=== PATIENT | male | born 1965 | race Native Hawaiian/Other Pacific Islander ===

== ENCOUNTER 2018-03-16 07:41 | Emergency (ER) | payer MEDICARE ==
[2018-03-16 08:13] VITALS: TEMP 98.8; O2SAT 97
[2018-03-16] MEDS ORDERED: Oxycodone/Acetaminophen 5/325 mg Tab PO STA (08:18)
[2018-03-16] MEDS ORDERED: Oxycodone/Acetaminophen 5/325 mg Tab ONE (08:41)
--- NOTE | 2018-03-16 08:59 | C.PDOC ---
History Of Present Illness 52 years old male with with PMHx of gout brought to ED by ambulance for complaints of constant left knee pain associated with some swelling that began 2 days ago. Patient reports its painful to walk and bend knee. Denies injuries, trauma, or any other complaints. Time Seen by Provider: 03/16/18 08:02 Chief Complaint (Nursing): Lower Extremity Problem/Injury History Per: Patient History/Exam Limitations: no limitations Onset/Duration Of Symptoms: Hrs Current Symptoms Are (Timing): Still Present Recent travel outside of the [place]: No Past Medical History Reviewed: Historical Data, Nursing Documentation, Vital Signs Vital Signs: Last Vital Signs Temp 98.8 F 03/16/18 07:57 Pulse 91 H 03/16/18 07:57 Resp 20 03/16/18 07:57 BP 148/90 03/16/18 07:57 Pulse Ox 97 03/16/18 07:57 - Medical History PMH: No Chronic Diseases Family History: States: No Known Family Hx - Social History Hx Alcohol Use: No Hx Substance Use: No - Immunization History Hx Tetanus Toxoid Vaccination: No Hx Influenza Vaccination: Yes Hx Pneumococcal Vaccination: No Review Of Systems Constitutional: Negative for: Fever, Chills Gastrointestinal: Negative for: Nausea, Vomiting, Abdominal Pain, Diarrhea Musculoskeletal: Positive for: Other (Left Knee pain ) Skin: Negative for: Rash Neurological: Negative for: Weakness, Numbness Physical Exam - Physical Exam Appears: Well, Non-toxic, No Acute Distress Skin: Normal Color, Warm, Dry, No Rash Head: Atraumatic, Normacephalic Eye(s): bilateral: PERRL, EOMI, right: Other (ptosis), left: Normal Inspection Oral Mucosa: Moist Neck: Normal ROM, Supple Chest: Symmetrical, No Tenderness Cardiovascular: Rhythm Regular Respiratory: Normal Breath Sounds, No Rales, No Rhonchi, No Wheezing Extremity: Normal ROM, Tenderness (Mild to anterior and medial aspect of left knee ), Swelling (Mild to anterior and medial aspect of left knee ), Other (Left knee tactile warmth but no erythema. Painful flexion but good active range of motion. ) Extremity: Bilateral: Normal ROM Pulses: Right Radial: Normal Neurological/Psych: Oriented x3, Normal Speech ED Course And Treatment O2 Sat by Pulse Oximetry: 97 (RA) Pulse Ox Interpretation: Normal Medical Decision Making Medical Decision Making: Impression: Knee pain Plan: * Toradol * Percocet * Knee X-Ray Progress: Knee xray viewed by me shows degenerative changes, no fracture or effusion Patient treated with Percocet and Toradol and on re-eval reported some relief of pain. Patient stable for discharge Disposition Counseled Patient/Family Regarding: Diagnosis, Need For Followup, Rx Given - Disposition Referrals: [facility] [Outside] [facility] [Outside] Disposition: HOME/ ROUTINE Disposition Time: 09:27 Condition: STABLE Additional Instructions: Follow up with your primary medical doctor or clinic in 2-5 days for further evaluation. Take medications as prescribed. Return to the emergency department at any time if symptoms persist or worsen. Prescriptions: Naproxen [Naprosyn] 1 tab PO Q12 #30 tab traMADol [Ultram] 50 mg PO Q8 #15 tab Instructions: Knee Pain (DC) Forms: [employer] (Croatian) - POA Present On Arrival: None - Clinical Impression Clinical Impression: Knee pain, left - PA / BEAD MAKER / Resident Statement MD/DO has reviewed & agrees with the documentation as recorded. - Scribe Statement The provider has reviewed the documentation as recorded by the Scribe Ronald Caceres All medical record entries made by the [place] were at my direction and personally dictated by me. I have reviewed the chart and agree that the record accurately reflects my personal performance of the history, physical exam, medical decision making, and the department course for this patient. I have also personally directed, reviewed, and agree with the discharge instructions and disposition.
[2018-03-16 10:14] VITALS: BP 135/83; PULSE 95; RESP 16
--- NOTE | 2018-03-16 12:21 | RAD ---
PROCEDURE: Left Knee Radiographs. HISTORY: pain COMPARISON: None available. FINDINGS: BONES: No acute displaced fracture. JOINTS: No dislocation. JOINT EFFUSION: No significant joint effusion. OTHER FINDINGS: None. IMPRESSION: No acute displaced fracture, dislocation, or significant joint effusion identified. If symptoms persist, or if there is continued clinical concern, x-ray follow-up in 7-10 days should be considered.
== END 2018-03-16 10:14 | disposition home or self-care (01) ==
LOC: C.ER 07:41
DX: M25.562 Pain in left knee (principal)
CPT/HCPCS: 73562; 96372; 99284; J1885